=== PATIENT | male | born 1960 | race Caucasian/White ===

== ENCOUNTER 2017-10-26 09:00 | Inpatient (IN) | payer MEDICARE ==
--- NOTE | 2017-10-26 10:07 | ED Physician Chart ---
ED Chief Complaint/HPI - Patient Information Date Seen:: 10/26/17 Chief Complaint:: depressed History of Present Illness:: chronic psy history started to drink excessive Allergies:: Allergies Allergy/AdvReac Type Severity Reaction Status Date / Time No Known Allergies Allergy Verified 10/26/17 09:10 Vitals:: Vital Signs - 8 hr 10/26/17 09:10 Temp 98.1 F HR 110 RR 16 BP 152/102 O2 Sat % 96 Historian:: Patient Family Medical History - Family Member Mother History Unknown: Yes ED Labs/Radiology/EKG Results - Lab Results Results: cbc bmp acceptible course in er is uneventfull requesting food pscye liason visits arranges for admit ED Assessment - Assessment General Assessment: depression hx with acute exacerbation alcohol and care home status ED Septic Shock - <6hrs of presentation: Vital Signs: Vital Signs - 8 hr 10/26/17 09:10 Temp 98.1 F HR 110 RR 16 BP 152/102 O2 Sat % 96 ED Discharge Plan - Patient Disposition Admit/Discharge/Transfer: Acute Care w/in this hosp
--- NOTE | 2017-10-26 10:18 | ED Physician Chart ---
ED Chief Complaint/HPI - Patient Information Date Seen:: 10/26/17 Allergies:: Allergies Allergy/AdvReac Type Severity Reaction Status Date / Time No Known Allergies Allergy Verified 10/26/17 09:10 Vitals:: Vital Signs - 8 hr 10/26/17 09:10 Temp 98.1 F HR 110 RR 16 BP 152/102 O2 Sat % 96 ED Review of Systems - Review of Systems General/Constitutional: No fever Skin: No bruising Head: No headache Eyes: No loss of vision ENT: No tinnitus Neck: No thyromegaly Cardio Vascular: No chest pain Pulmonary: No SOB GI: No hematochezia G/U: No hematuria Musculoskeletal: No bone or joint pain Endocrine: No polydipsia Psychiatric: Prior psych history Hematopoietic: No lymphadenopathy Allergic/Immuno: No angioedema Neurological: No syncope, No seizure ED Past Medical History - Past Medical History Past Medical History: Other (depression) Social History: Alcohol Psychiatricy History: Depression Medication: Reviewed Family Medical History - Family Member Mother History Unknown: Yes ED Physical Exam - Physical Examination General/Constitutional: GCS 15, Non-toxic appearing, Ambulatory Head: Atraumatic Eyes: Lids, conjuctiva normal Skin: Well hydrated ENMT: External ears, nose nl Neck: No JVD Respiratory: Clear to Auscultation Cardio Vascular: RRR, No murmur, gallop, rubs, NL S1 S2 GI: No tenderness/rebounding/guarding : No CVA tenderness Extremities: No edema Neuro/Psych: Alert/oriented, Normal motor strength, No focal deficits Misc: Normal back ED Septic Shock - . Is Septic Shock (SBP<90, OR Lactate>4 mmol\L) present?: No - <6hrs of presentation: Vital Signs: Vital Signs - 8 hr 10/26/17 09:10 Temp 98.1 F HR 110 RR 16 BP 152/102 O2 Sat % 96 ED Discharge Plan - Patient Disposition Admit/Discharge/Transfer: Acute Care w/in this hosp Condition at Disposition: Stable
[2017-10-26 10:27] LABS: % BASOPHILS 0.2 % (0.0-2.0); % EOSINOPHILS 0.4 % (0.0-5.0); % LYMPHOCYTES 18.4 % (20.0-50.0); % MONOCYTES 3.3 % (2.0-10.0); % NEUTROPHILS 77.7 % (40.0-80.0); HEMOGLOBIN 16.3 gm/dL (12-16); MEAN CELL VOLUME 86.5 fl (80-99); MEAN CORPUSCULAR HEMOGLOBIN 28.8 pg (26.0-30.0); MEAN CORPUSCULAR HGB CONC 33.3 pg (28.0-36.0); MEAN PLATELET VOLUME 6.9 fl; MONOCYTE ABSOLUTE 0.4 Th/cmm (0.3-1.0); NEUTROPHILE ABSOLUTE 8.4 Th/cmm (1.8-8.0); PLATELET COUNT 366 Th/cmm (150-400); RED BLOOD COUNT 5.67 Mil/cmm (4.30-5.70); RED CELL DISTRIBUTION WIDTH 12.6 % (11.5-20.0); WHITE BLOOD COUNT 10.8 Th/cmm (4.8-10.8)
[2017-10-26 10:43] LABS: ANION GAP 17.9 (7.0-16.0); BUN - UREA NITROGEN 20 mg/dL (7-25); CALCIUM SERUM 9.4 mg/dL (8.6-10.3); CARBON DIOXIDE 23.1 mEq/L (21.0-31.0); CHLORIDE 99 mEq/L (98-107); CREATININE - SERUM 0.8 mg/dL (0.7-1.3); GFR AFRICAN-AMERICAN > 60.0 ml/min (>90); GFR NON AFRICAN-AMERICAN > 60.0 ml/min; GLUCOSE 141 mg/dL (70-105); SODIUM SERUM 136 mEq/L (136-145)
[2017-10-26] MEDS ORDERED: Magnesium Hydroxide (MOM) 30 mL UDC PO PRN (13:14)
[2017-10-26] MEDS: Maalox 30 mL Cup PO PRN (20:54)
--- NOTE | 2017-10-27 01:57 | Psychosocial Evaluation ---
DATE OF SERVICE: 10/26/2017 JUSTIFICATION FOR HOSPITALIZATION: Severe depression and alcohol withdrawal management. HISTORY OF PRESENT ILLNESS: A 57-year-old male, needing help with alcohol withdrawal management, drinking 1 liter of vodka daily for the past week, also attesting to severe depression, stating he has been depressed for "years." States he relapsed recently "I felt like I wanted to be numb, decreased hope, loss of hope attesting to sadness, melancholy, hopeless and helpless thoughts." PAST PSYCHIATRIC HISTORY: Admissions in the past, suicide attempt in the past. FAMILY HISTORY: Noncontributory. SOCIAL HISTORY: Homeless, currently born in [facility]. Not , currently , 2 kids drinking excessively and also using nicotine. MEDICATIONS: Noted. MENTAL STATUS EXAMINATION: Stated age. Fair eye contact. Speech within normal limits, mildly tremulous. Mood very depressed. Affect withdrawn. Thought processes were linear. No active SI or HI. No psychotic symptoms. Insight and judgment diminished. PROVISIONAL DIAGNOSES: Major depression, recurrent, severe, no psychosis. Alcohol use disorder, severe; alcohol-induced mood disorder. Under medical, please see full H and P. ESTIMATED LENGTH OF STAY: 5-7 days. ASSESSMENT: The patient is severely depressed, also needing help with alcohol withdrawal management. PLAN: We will start medications such as his Librium. TREATMENT PLAN: Includes group as well as milieu therapy. CONDITIONS FOR DISCHARGE: Improved mood, improved affect, cessation of any SI, better mood, safe alcohol withdrawal management. JOB# [id number]
[2017-10-27] MEDS: Multivitamin Tab PO SCH (08:38)
[2017-10-27] MEDS: Maalox 30 mL Cup PO PRN (20:37)
--- NOTE | 2017-10-27 22:31 | Progress Notes ---
DATE: 10/27/2017 SUBJECTIVE: A 57-year-old male, still withdrawing from alcohol. Mild tremors noted. Poor sleep, anxious. He does think he is going to be homeless, worried about homelessness. Vitals are reviewed. Blood pressure 143/93 and pulse of 84. He is tolerant to treatment and tolerant to medications. He is complaining of insomnia. He is depressed. ASSESSMENT: The patient remains symptomatic, severely depressed, highly anxious, still withdrawing from alcohol, still needing alcohol withdrawal management. PLAN: We will continue to monitor. We will initiate trazodone at night time. He notes that historically this has helped him. We will monitor and follow up. The patient does seem to be ____ without complication and withdrawing from alcohol at this time. [facility]# [id number]
[2017-10-28] MEDS: Multivitamin Tab PO SCH (08:33)
--- NOTE | 2017-10-28 14:25 | History & Physical ---
ADMIT DATE: 10/26/2017 REASON FOR ADMISSION: Psychiatric disorder with alcohol dependency. HISTORY OF PRESENT ILLNESS: This is a 57-year-old male who was admitted to [facility] for underlying psychiatric illnesses and alcohol dependency by Dr. Llamas. Dr. Llamas requested medical H and P on this patient. The patient stated that he is doing fine. Denies any chest pain, shortness of breath, dizziness, palpitation. No nausea, no vomiting or other complaints. PAST MEDICAL HISTORY: Denies any past medical and past surgical history. FAMILY HISTORY: Denies any family history. SOCIAL HISTORY: Currently homeless. Daily alcohol and tobacco smoking. Denies any street drug use. CURRENT MEDICATIONS: Per medical reconciliation, is reviewed. ALLERGIES: No known drug allergies. REVIEW OF SYSTEMS: As per HPI. Twelve-point system review is negative. PHYSICAL EXAMINATION: VITAL SIGNS: Temperature 98.2, pulse 84, respirations 20, blood pressure 110/77. HEENT: Unremarkable. HEART: S1, S2 normal. LUNGS: Clear to auscultation bilaterally. ABDOMEN: Soft, nontender. No guarding. NEUROLOGIC: Alert, awake, follows commands. Moves all extremities. Grossly nonfocal exam. EXTREMITIES: No edema. AVAILABLE LABORATORY DATA: Has been reviewed. ASSESSMENT: 1. Nicotine dependency. 2. Alcohol dependency. 3. Insomnia. 4. Psych disorder. PLAN: Psych management per psychiatrist. Smoking cessation advised. Alcohol moderation advised. Continue trazodone as needed for insomnia. Psych management and evaluation per psychiatrist. Preventive health discussed. The patient is medically stable to participate in activities at [facility]. Thank you, Dr. Llamas, for allowing me to participate in the care of this patient. JOB# [id number]
[2017-10-28] MEDS: Maalox 30 mL Cup PO PRN (21:02)
--- NOTE | 2017-10-28 22:34 | Progress Notes ---
DATE: 10/28/2017 SUBJECTIVE: A 57-year-old male was withdrawing from alcohol. Mild tremors noted. Very poor sleep, ongoing anxiety, still worried about his homeless status. No overt SI. Vitals were reviewed, blood pressure 140/78 and pulse of 90. No hallucinations or perceptual disturbances. The patient is still complaining of insomnia. ASSESSMENT: The patient remains withdrawn, depressed, mostly isolative in his bed. Still with insomnia. Alcohol withdrawal symptoms noted. We will monitor and follow up. Given his ongoing symptoms, he is not safe for discharge. JOB# [id number]
[2017-10-29] MEDS: Multivitamin Tab PO SCH (08:52)
[2017-10-30] MEDS: Multivitamin Tab PO SCH (09:45)
[2017-10-30] MEDS: Escitalopram Oxalate 5 mg Tab PO SCH (09:45)
[2017-10-30] MEDS: Maalox 30 mL Cup PO PRN (21:49)
--- NOTE | 2017-10-31 01:42 | Progress Notes ---
DATE: 10/30/2017 SUBJECTIVE: The patient in the hospital, detoxing from alcohol, calm and cooperative, concerns in regards to the severity of his depression he was noting. He is feeling somewhat better. Also on a positive note, he did sleep better last night. He seems to be in better spirits, eating well. Denying any SI, seems to be safely and without complications, withdrawing from alcohol. We are trying to help him with placement if possible given his homeless status. Medications were noted. ASSESSMENT: The patient seems to be improving, safely withdrawing from alcohol, depression symptoms improving. PLAN: We will initiate the low dose of an antidepressant. We will taper Librium. We will continue to encourage sobriety, group as well as milieu therapy. We will monitor and follow up. JOB# [id number]
[2017-10-31] MEDS: Multivitamin Tab PO SCH (09:59)
[2017-10-31] MEDS: Escitalopram Oxalate 5 mg Tab PO SCH (10:00)
--- NOTE | 2017-10-31 17:22 | Progress Notes ---
DATE: 10/31/2017 SUBJECTIVE: The patient in the hospital detoxing from alcohol. Calm, cooperative, no events, pleasant, sleeping, still with some difficulty, eating fairly well. AO x 4. Vitals reviewed. MEDICATIONS: Reviewed. No SI, no HI, more hopeful. ASSESSMENT: The patient is still anxious, still with insomnia, but does seem to be tolerating dose adjustments of medications, safely withdrawing from alcohol. PLAN: We will continue to monitor. We will taper Librium. Given his ongoing symptoms, he is not safe for discharge, but is making an improvement. He is also complaining of anxiety. JOB# [id number]
[2017-10-31] MEDS: Maalox 30 mL Cup PO PRN (21:48)
[2017-11-01] MEDS: Escitalopram Oxalate 5 mg Tab PO SCH (09:57)
[2017-11-01] MEDS: Multivitamin Tab PO SCH (09:58)
--- NOTE | 2017-11-01 11:46 | Progress Notes ---
DATE: SUBJECTIVE: The patient seen, chart reviewed, discussed with staff. The patient slept very well last night, tolerant of treatment, doing well with alcohol detox management. No indication is withdrawing from alcohol. He is pleasant, calm and cooperative, states he feels "much better." The patient currently has no vertigo, concerns for grave disability. Certainly concerns for relapse, although he is eating on his own, volition, ambulating, and going to the bathroom, so he is likely able to attend to his basic needs and he would like to speak with the social media executive to see if there is somewhere safe that he can go. ASSESSMENT: The patient seems to be improving, sleeping well, eating well, getting along well with staff and peers. We are trying to find no place to go. PLAN: We will continue to monitor and follow up. We will coordinate care with social media executive regarding safe discharge plan and get psychiatric followup. JOB# [id number]
== END 2017-11-01 12:45 | disposition left against medical advice (07) | DRG 885 ==
LOC: ER 09:00 → GERO2 11:03
PROVIDERS: ADMIT Psychiatry & Neurology Psychiatry; ATTEND Psychiatry & Neurology Psychiatry
DX: F33.2 Major depressive disorder, recurrent severe without psychotic features (principal); F10.239 Alcohol dependence with withdrawal, unspecified; F10.24 Alcohol dependence with alcohol-induced mood disorder; Z91.5 Personal history of self-harm; Z59.0 Homelessness; G47.00 Insomnia, unspecified; F17.200 Nicotine dependence, unspecified, uncomplicated; F29 Unspecified psychosis not due to a substance or known physiological condition
CPT/HCPCS: 36415-UA; 80048-TC; 85025-TC; G0410; Z7610

== ENCOUNTER 2018-01-20 08:39 | Inpatient (IN) | payer MEDICARE ==
--- NOTE | 2018-01-20 09:11 | ED Physician Chart ---
ED Chief Complaint/HPI - Patient Information Date Seen:: 01/20/18 Time Seen:: 09:05 Chief Complaint:: suicidal ideation History of Present Illness:: Patient states he was admitted alcoholic anonymous meeting this morning and stated there that he was thinking of walking out in front of traffic patient drank 1 pint of vodka this morning he's recently 6 months of sobriety. In October 2014 patient cut his wrists in his only prior suicide attempt and [facility]. Allergies:: Allergies Allergy/AdvReac Type Severity Reaction Status Date / Time No Known Allergies Allergy Verified 01/20/18 09:10 Vitals:: Vital Signs - 8 hr 01/20/18 09:03 Temp 97.3 F HR 93 RR 18 BP 144/91 O2 Sat % 95 Historian:: Patient Review:: Nurse's Note Reviewed ED Review of Systems - Review of Systems General/Constitutional: No fever, No chills, No weight loss, No weakness, No diaphoresis, No edema, No loss of appetite Skin: No skin lesions, No rash, No bruising Head: No headache, No light-headedness Eyes: No loss of vision, No pain, No diplopia ENT: No earache, No nasal drainage, No sore throat, No tinnitus Neck: No neck pain, No swelling, No thyromegaly, No stiffness, No mass noted Cardio Vascular: No chest pain, No palpitations, No PND, No orthopnea, No edema Pulmonary: No SOB, No cough, No sputum, No wheezing GI: No nausea, No vomiting, No diarrhea, No pain, No melena, No hematochezia, No constipation, No hematemesis G/U: No dysuria, No frequency, No hematuria Musculoskeletal: No bone or joint pain, No back pain, No muscle pain Endocrine: No polyuria, No polydipsia Psychiatric: Prior psych history, Depression, No anxiety, Suicidal ideation Hematopoietic: No bruising, No lymphadenopathy Allergic/Immuno: No urticaria, No angioedema Neurological: No syncope, No focal symptoms, No weakness, No paresthesia, No headache, No seizure, No dizziness, No confusion, No vertigo ED Past Medical History - Past Medical History Past Medical History: Other (bipolar major depression) Family History: Heart disease, Diabetes Melitus, HTN Social History: Smoker, Homeless, Other Surgical History: other (left hip replacement surgery) Psychiatricy History: Depression, Bipolar Medication: Reviewed Family Medical History - Family Member Mother History Unknown: Yes Uncle History Unknown: Yes Ethnicity: Non- Living Status: Hx Family Diabetes: Yes ED Physical Exam - Physical Examination General/Constitutional: Well-developed, well-nourished, Alert, No distress Head: Atraumatic Eyes: Lids, conjuctiva normal, PERRL Other Skin comments:: Apparent scratch vazquez right pretibial area ENMT: External ears, nose nl, TM canals nl, Nasal exam nl, Oropharynx nl, Tonsils nl Other ENMT comments:: 3 out of 4. Abdominal disease Neck: No nuchal rigidity Respiratory: Nl effort/Exclusion, Clear to Auscultation Cardio Vascular: RRR, No murmur, gallop, rubs GI: No tenderness/rebounding/guarding, No organomegaly, No hernia, Normal BS's, Nondistended, No mass/bruits, No McBurney tenderness : No CVA tenderness Neuro/Psych: No focal deficits Misc: Normal back, No paraspinal tenderness ED Labs/Radiology/EKG Results - Lab Results Results: Laboratory Results - last 24 hr 01/20/18 01/20/18 01/20/18 09:19 09:19 10:10 WBC 7.2 RBC 4.52 Hgb 13.3 Hct 39.7 L MCV 87.7 MCH 29.3 MCHC Differential 33.4 RDW 12.8 Plt Count 319 MPV 7.4 Neutrophils % 65.6 Lymphocytes % 24.7 Monocytes % 7.8 Eosinophils % 1.2 Basophils % 0.7 Sodium 135 L Potassium 3.7 Chloride 104 Carbon Dioxide 21.8 Anion Gap 12.9 BUN 13 Creatinine 0.9 Est GFR ( Amer) > 60.0 Est GFR (Non-Af Amer) > 60.0 BUN/Creatinine Ratio 14.4 Glucose 101 Calcium 9.2 Total Bilirubin 0.3 AST 17 ALT 18 Alkaline Phosphatase 72 Total Protein 6.4 Albumin 4.3 Globulin 2.1 Albumin/Globulin Ratio 2.1 H Triglycerides 141 Cholesterol 140 LDL Cholesterol Direct 75 HDL Cholesterol 44 Urine Source Urine Color Urine Clarity Urine pH Ur Specific Carlton Urine Protein Urine Glucose (UA) Urine Ketones Urine Blood Urine Nitrate Urine Bilirubin Urine Urobilinogen Ur Leukocyte Esterase Urine RBC Urine WBC Ur Epithelial Cells Urine Bacteria Salicylates < 25.0 L Urine Opiates Screen NEGATIVE Urine Methadone Screen NEGATIVE Acetaminophen < 10.0 L Ur Barbiturates Screen NEGATIVE Ur Tricyclics Screen NEGATIVE Ur Phencyclidine Scrn NEGATIVE Amphetamines Screen NEGATIVE U Methamphetamines Scrn NEGATIVE U Benzodiazepines Scrn POSITIVE H U Cocaine Metab Screen NEGATIVE U Cannabinoids Screen NEGATIVE Ethyl Alcohol 236 H 01/20/18 10:10 WBC RBC Hgb Hct MCV MCH MCHC Differential RDW Plt Count MPV Neutrophils % Lymphocytes % Monocytes % Eosinophils % Basophils % Sodium Potassium Chloride Carbon Dioxide Anion Gap BUN Creatinine Est GFR ( Amer) Est GFR (Non-Af Amer) BUN/Creatinine Ratio Glucose Calcium Total Bilirubin AST ALT Alkaline Phosphatase Total Protein Albumin Globulin Albumin/Globulin Ratio Triglycerides Cholesterol LDL Cholesterol Direct HDL Cholesterol Urine Source CLEAN C Urine Color YELLOW Urine Clarity CLEAR Urine pH 6.0 Ur Specific Carlton 1.010 Urine Protein NEGATIVE Urine Glucose (UA) NEGATIVE Urine Ketones NEGATIVE Urine Blood NEGATIVE Urine Nitrate NEGATIVE Urine Bilirubin NEGATIVE Urine Urobilinogen 0.2 Ur Leukocyte Esterase TRACE H Urine RBC NONE SEEN Urine WBC 0-2 Ur Epithelial Cells RARE Urine Bacteria RARE Salicylates Urine Opiates Screen Urine Methadone Screen Acetaminophen Ur Barbiturates Screen Ur Tricyclics Screen Ur Phencyclidine Scrn Amphetamines Screen U Methamphetamines Scrn U Benzodiazepines Scrn U Cocaine Metab Screen U Cannabinoids Screen Ethyl Alcohol - EKG Interpretations Rate & Rhythm: normal sinus rhythm with a rate of 77 [place]: normal Comments:: Premature atrial contractions ED Septic Shock - . Is Septic Shock (SBP<90, OR Lactate>4 mmol\L) present?: No - <6hrs of presentation: Vital Signs: Vital Signs - 8 hr 01/20/18 09:03 Temp 97.3 F HR 93 RR 18 BP 144/91 O2 Sat % 95 ED Reassessment (Disposition) - Reassessment Reassessment Condition:: Unchanged - Diagnosis Diagnosis:: Suicidal ideation; depression; alcohol intoxication; acute and chronic alcohol abuse; bipolar disorder - Patient Disposition Admitted to:: [facility] Spoke to:: Bobo Parra Admitting Medical Physician:: Bobo Parra Admitting Psych Physician:: Mayco Llamas Condition at Disposition:: Stable, Unchanged
[2018-01-20 09:29] LABS: % BASOPHILS 0.7 % (0.0-2.0); % EOSINOPHILS 1.2 % (0.0-5.0); % LYMPHOCYTES 24.7 % (20.0-50.0); % MONOCYTES 7.8 % (2.0-10.0); % NEUTROPHILS 65.6 % (40.0-80.0); BASOPHILE ABSOLUTE 0.1 Th/cumm (0-0.2); EOSINOPHILE ABSOLUTE 0.1 Th/cmm (0.1-0.4); HEMATOCRIT 39.7 % (41.0-60); HEMOGLOBIN 13.3 gm/dL (12-16); LYMPHOCYTE ABSOLUTE 1.8 Th/cmm (1.5-3.0); MEAN CELL VOLUME 87.7 fl (80-99); MEAN CORPUSCULAR HEMOGLOBIN 29.3 pg (26.0-30.0); MEAN CORPUSCULAR HGB CONC 33.4 pg (28.0-36.0); MEAN PLATELET VOLUME 7.4 fl; MONOCYTE ABSOLUTE 0.6 Th/cmm (0.3-1.0); NEUTROPHILE ABSOLUTE 4.6 Th/cmm (1.8-8.0); PLATELET COUNT 319 Th/cmm (150-400); RED BLOOD COUNT 4.52 Mil/cmm (4.30-5.70); RED CELL DISTRIBUTION WIDTH 12.8 % (11.5-20.0); WHITE BLOOD COUNT 7.2 Th/cmm (4.8-10.8)
[2018-01-20 09:47] LABS: ACETAMINOPHEN < 10.0 ug/mL (10.0-30.0); ALB/GLOB RATIO 2.1 (1.0-1.8); ALBUMIN 4.3 gm/dL (4.2-5.5); ALKALINE PHOSPHATASE 72 U/L (34-104); ANION GAP 12.9 (7.0-16.0); BILIRUBIN,TOTAL 0.3 mg/dL (0.3-1.0); BUN - UREA NITROGEN 13 mg/dL (7-25); CALCIUM SERUM 9.2 mg/dL (8.6-10.3); CARBON DIOXIDE 21.8 mEq/L (21.0-31.0); CHLORIDE 104 mEq/L (98-107); CHOLESTEROL 140 mg/dL (<200); CREATININE - SERUM 0.9 mg/dL (0.7-1.3); GFR AFRICAN-AMERICAN > 60.0 ml/min (>90); GFR NON AFRICAN-AMERICAN > 60.0 ml/min; GLUCOSE 101 mg/dL (70-105); HDL -HIGH DENSITY LIPOPROTEIN 44 mg/dL (23-92); POTASSIUM SERUM 3.7 mEq/L (3.5-5.1); SGOT 17 U/L (13-39); SGPT/ALT 18 U/L (7-52); SODIUM SERUM 135 mEq/L (136-145); TOTAL PROTEIN,SERUM 6.4 gm/dL (6.0-8.3); TRIGLYCERIDES 141 mg/dL (<150)
[2018-01-20 09:54] LABS: SALICYLATES (ASPIRIN) < 25.0 mg/L (30.0-100.0)
[2018-01-20 10:21] LABS: URINE SOURCE CLEAN C
[2018-01-20 10:29] LABS: URINE BILIRUBIN NEGATIVE (NEGATIVE); URINE BLOOD NEGATIVE (NEGATIVE); URINE GLUCOSE (UA) NEGATIVE (NEGATIVE); URINE KETONE NEGATIVE (NEGATIVE); URINE LEUKOCYTE ESTERASE TRACE (NEGATIVE); URINE MICROSCOPIC INDICATED? YES; URINE NITRATE NEGATIVE (NEGATIVE); URINE PROTEIN NEGATIVE (NEGATIVE); URINE UROBILINOGEN 0.2 E.U./dL (0.2 - 1.0)
[2018-01-20 10:30] LABS: URINE CLARITY CLEAR (CLEAR); URINE COLOR YELLOW
[2018-01-20 10:37] LABS: AMPHETAMINE URINE NEGATIVE (NEGATIVE); BARBITURATES URINE NEGATIVE (NEGATIVE); BENZODIAZEPINES QUAL URINE POSITIVE (NEGATIVE); CANNABINOID THC NEGATIVE (NEGATIVE); COCAINE METABOLITE QUAL URINE NEGATIVE (NEGATIVE); METHADONE URINE NEGATIVE (NEGATIVE); METHAMPHETAMINES QUAL URINE NEGATIVE (NEGATIVE); OPIATES (MORPHINE) QUAL. URINE NEGATIVE (NEGATIVE); PHENCYCLIDINE (PCP) URINE NEGATIVE (NEGATIVE); TRICYCLICS (TCA) QUAL. URINE NEGATIVE (NEGATIVE)
[2018-01-20 10:39] LABS: URINE BACTERIA RARE /hpf (NONE SEEN); URINE EPITHELIAL CELLS RARE /lpf (FEW); URINE RBC NONE SEEN /hpf (0-5); URINE WBC 0-2 /hpf (0-5)
[2018-01-20] MEDS ORDERED: Maalox 30 mL Cup PO PRN (11:33)
[2018-01-20] MEDS ORDERED: Magnesium Hydroxide (MOM) 30 mL UDC PO PRN (11:33)
[2018-01-20 11:37] VITALS: BP 127/70
--- NOTE | 2018-01-20 13:12 | Psychiatric Evaluation ---
DATE OF SERVICE: 01/20/2018 IDENTIFYING INFORMATION: The patient is a 57-year-old male. CHIEF COMPLAINT: "I was suicidal." HISTORY OF PRESENT ILLNESS: The patient came after he was attended an AA meeting this morning. He stated that he was thinking of walking in front of traffic. The patient also drank 1 pint of vodka this morning. He has a 6 months of sobriety. He has a history of cutting himself in 2014. He has only one prior suicide attempt. The patient was at this facility in 10/2017 because of depression, alcohol withdrawal management, actually he is not sober 6 months at admission by the Emergency Room physician. The patient admits to feeling depressed. He is homeless. His sleep and appetite varies. He said he drank this morning, but he has not drank other than that recently. The patient was not sure of what medication he is on. The patient denies any auditory or visual hallucinations. Denies any intent to harm anybody. He reports suicidal ideation is not prominent. PAST PSYCHIATRIC HISTORY: He was hospitalized here before back in October of this year also at [place]. He sees Dr. James as an outpatient. I am not sure of his medication. The patient with a history of prior suicide attempt. ALLERGIES: No known drug allergy. MEDICATIONS: The patient was initiated by Ativan to be given every 4 hours as needed ____ symptoms of alcohol withdrawal. SOCIAL HISTORY: The patient reported he is for 18 years back in 1999, has 2 children, a boy at 28 years of age and a girl, 26 years of age. He has a master degree. He is on disability because of mental illness. The patient has no place to go. He reports positive family history of substance abuse. He also reports he has a long history of abusing all kind, but nothing specific, notes 1 trauma. He said it was multiple trauma. He is to be on medication for that. He is not sure what it is. MENTAL STATUS EXAMINATION: The patient is appropriately dressed, appropriately groomed. Mood is depressed. Affect is flat. Thoughts are clear. Speech is clear. He was alert and oriented to place, person, time, and situation. He reports increasing depression and wants to jump in front of a car. Unable to contract for safety outside the hospital setting, but he was able to contract for safety while he is here, said he is starting to feel a little bit better, has trouble with sleep, appetite, they vary. His penitentiary memory ____ age, date of . Recent memory is good for events that led to him coming here and what he ate for breakfast. His insight about his illness is fair. Judgment is poor with him wanting to harm himself. IMPRESSION: Major depression, recurrent, severe with no psychosis, post-traumatic stress disorder, chronic alcohol dependence. MEDICAL DIAGNOSES: Deferred to the medical doctor. INITIAL TREATMENT PLAN: The patient will be started on Zoloft, also initiate him on Neurontin to protect him from withdrawal just in case, but however, he does say he does not need detox as he only drank today and maybe a little bit yesterday. We will do group therapy, milieu therapy, and individual therapy. I initiate Zoloft and may add ____ later. ESTIMATED LENGTH OF STAY: 3-7 days. DISCHARGE CRITERIA: Decreasing depression, no longer suicidal. After discharge, outpatient treatment. JOB# [id number]
[2018-01-21] MEDS: Multivitamin Tab PO SCH (09:14)
--- NOTE | 2018-01-21 21:42 | Progress Notes ---
DATE: 01/21/[address] Llamas. Case was discussed with staff of the patient and reviewed records. The patient continues to be depressed, continues to have thoughts of wanting to harm himself with a history of cutting himself and prior suicide attempt. The patient slept better, eating better, continues to be depressed, overwhelmed. No side effects with the medications, no sedation, no nausea and slept better, eating better, and we will continue the patient in group therapy, milieu therapy, and adjust medications as needed. JOB# [id number]
[2018-01-22] MEDS: Multivitamin Tab PO SCH (09:00)
--- NOTE | 2018-01-22 09:58 | Progress Notes ---
DATE: Dr. Good covering for Dr. Llamas. SUBJECTIVE: Chart reviewed and the patient interviewed. Also discussed the patient's condition with the staff and reviewed records and labs. The patient seems to be slightly calmer and seems to be less irritable and less agitated. He also is interacting more with peers and with others. He is asking for more food. He still has periods of agitation and irritability as well as depression. Otherwise, the patient is compliant with taking his medication, no side effects. ASSESSMENT: The patient is still depressed. TREATMENT PLAN: We will continue monitoring his behavior and his condition closely and continue adjusting psychotropic medications and follow up closely. JOB# [id number]
[2018-01-23] MEDS: Multivitamin Tab PO SCH (08:27)
[2018-01-23] MEDS ORDERED: NAPROXEN SODIUM 220 MG PO SCH (09:00)
[2018-01-23] MEDS ORDERED: TRAZODONE HCL 300 MG PO SCH (21:00)
--- NOTE | 2018-01-24 00:44 | Progress Notes ---
DATE: 01/23/2018 Chart reviewed and the patient interviewed. Also, discussed the patient's condition with the staff and reviewed records and labs. The patient is still anxious and is still irritable at times. Also, still has mood swings. The patient also still needs redirection, but easier to redirect him. The patient also is compliant with taking his medications with no side effects of medications. ASSESSMENT: The patient is still psychotic and depressed. TREATMENT PLAN: Continue to monitor his behavior and his condition closely. Also, continue adjusting psychotropic medications and behavioral modification. JOB# [id number]
[2018-01-24] MEDS: Multivitamin Tab PO SCH (08:50)
--- NOTE | 2018-01-24 15:08 | History & Physical ---
ADMIT DATE: 01/22/2018 REASON FOR ADMISSION: Psychiatric disorders and alcohol dependency. HISTORY OF PRESENT ILLNESS: This is a 57-year-old male who went to [facility] for underlying psychiatric illness and alcohol dependency by Dr. Mao. Dr. Good requested medical H and P on this patient. ____ the patient stated that he is doing fine. Denies any fever or chills. No nausea, no abdominal pain, no chest pain or trouble breathing reported. PAST MEDICAL HISTORY: Denies any past medical. PAST SURGICAL HISTORY: None. FAMILY HISTORY: Noncontributory. SOCIAL HISTORY: No tobacco. Positive for alcohol. MEDICATIONS: Tylenol, Maalox, Xanax, Neurontin, Ativan, multivitamin, Naprosyn, Seroquel, Zoloft and trazodone. REVIEW OF SYSTEMS: As per HPI, 12-point system review is negative. PHYSICAL EXAMINATION: VITAL SIGNS: Temperature 98.6, pulse 90, respiration rate 20, blood pressure 141/92. HEENT: Unremarkable. HEART: S1, S2 normal. LUNGS: Clear to auscultation bilaterally. ABDOMEN: Soft, nontender. EXTREMITIES: No clubbing, cyanosis or edema. ASSESSMENT: 1. Hypertension. 2. Nicotine dependency. 3. Alcohol dependency. 4. Psychiatric disorders. PLAN: Monitor the patient's vital signs for possibly high blood pressure, positive for alcohol withdrawal. We will closely monitor ____, no further recommendations. Smoking cessation advised. ____ advised. Psych management per psychiatrist. The patient is medically stable to participate in activities at [facility] unit. Thank you Dr. Good for allowing us to participate in the care of this patient. JOB# [id number]
--- NOTE | 2018-01-25 03:34 | Progress Notes ---
DATE: 01/24/2018 The patient coming in, he attended AA, thinking of walking in front of traffic, drinking copious amounts of alcohol. History of cutting in the past, ongoing SI, not feeling safe. Still with suicidal fantasies, thoughts to hurt himself. Pulse rate within normal limits. Blood pressure mildly elevated. No tremors noted, seems to be safely withdrawing from alcohol. No overt side effects. Currently on Ativan p.r.n. ASSESSMENT: The patient remains symptomatic, ongoing SI, not darron for safety, fantasies to hurt self. PLAN: We will continue to monitor and adjust dosing of Ativan to address any underlying symptoms indicative of withdrawal. We will continue to monitor. [facility]# [id number]
[2018-01-25] MEDS: Multivitamin Tab PO SCH (09:53)
--- NOTE | 2018-01-25 21:22 | Progress Notes ---
DATE: 01/25/2018 SUBJECTIVE: The patient noting he is feeling better, hoping to go to [facility], noting that now that he has a safe place to go, he is no longer suicidal. Sleep is somewhat disturbed. No tremors. Vitals reviewed. AO x 4 place, year, situation, month, year, the patient denying any hallucinations, no paranoia. ASSESSMENT: The patient is improving, stating he is feeling better. No SI, no HI. Noting he has done well on Cymbalta in the past. Currently on Zoloft. He would like to be on Wellbutrin. PLAN: We will continue to monitor. The patient noting improvements. MEDICATIONS: Reviewed. JOB# [id number]
[2018-01-26] MEDS: Multivitamin Tab PO SCH (09:43)
--- NOTE | 2018-01-26 19:07 | Progress Notes ---
DATE: 01/26/2018 SUBJECTIVE: The patient remains motivated to go to the sober living, wants to go [facility], wants to follow up with psychiatrist. His mood is somewhat somber on exam, irritable, not sleeping well, too much noise on the unit. He remains motivated for sobriety, eating well. He wants to get back on Cymbalta. He states he has done well with Cymbalta in the past, although right now he is on Zoloft and it seems to be doing pretty well. Also on p.r.n. Ativan and also trazodone at high dose. The patient seems to be stabilizing on current dosing of medications. I am somewhat apprehensive about adding medications because I am concerned about the addition of side effects given that he is stabilizing at this time. Staff notes he is more cooperative, well oriented to name, place, situation, year, month, more willing to share his feelings, continuing to express that he wants to remain sober, wants to go to AA. ASSESSMENT: Fair ADLs, good eye contact. Speech within normal limits. Mood "better." Affect constricted. Thought processes are linear. No SI, no HI, no intent, no plan. No overt psychotic symptoms. Insight and judgment seem somewhat improved. PLAN: We will continue to monitor for further 24 hours. We will prepare for a safe disposition tomorrow. JOB# [id number]
[2018-01-27] MEDS: Multivitamin Tab PO SCH (09:08)
--- NOTE | 2018-01-27 23:00 | Progress Notes ---
DATE: Dr. Good covering for Dr. Llamas. SUBJECTIVE: Chart reviewed and the patient interviewed. Also discussed the patient's condition with the staff and reviewed records and labs. The patient is still anxious and is still in irritable mood. The patient also is still easily agitated. Also, wants to be left alone. Also, is still suspicious and paranoid at times. Otherwise, the patient is compliant with taking his medications with no side effect of medications. ASSESSMENT: The patient is still psychotic and agitated. TREATMENT PLAN: Continue to monitor behavior and condition closely and continue adjusting psychotropic medications and followup. JOB# [id number]
== END 2018-01-27 12:25 | disposition home or self-care (01) | DRG 885 ==
LOC: ER 08:39 → GERO2 11:00
PROVIDERS: ADMIT Psychiatry & Neurology Psychiatry; ATTEND Psychiatry & Neurology Psychiatry
DX: F33.2 Major depressive disorder, recurrent severe without psychotic features (principal); F10.229 Alcohol dependence with intoxication, unspecified; R45.851 Suicidal ideations; I10 Essential (primary) hypertension; F17.210 Nicotine dependence, cigarettes, uncomplicated; F43.10 Post-traumatic stress disorder, unspecified; F29 Unspecified psychosis not due to a substance or known physiological condition; Z83.3 Family history of diabetes mellitus; Z82.49 Family history of ischemic heart disease and other diseases of the circulatory system; Z96.642 Presence of left artificial hip joint
CPT/HCPCS: 36415-UA; 80053-TC; 80061-TC; 80307; 80320-TC; 80329-TC; 81001-TC; 83036-90; 84443-TC; 85025-TC; 86592-TC; 93005; G0410; Z7610